=== PATIENT | male | born 1985 | race Caucasian/White ===

== ENCOUNTER → 2016-08-13 | Outpatient (CLI) | payer BC ==
[2016-08-13 15:03] LABS: BUN/CREATININE RATIO 16 (0-10)
== END ==
LOC: LAB 14:04
PROVIDERS: Nurse Practitioner Family
DX: R73.9 Hyperglycemia, unspecified (principal); R53.83 Other fatigue; Z83.3 Family history of diabetes mellitus; I10 Essential (primary) hypertension
CPT/HCPCS: 36415; 80053; 82043; 82088; 82570; 83036; 83835; 84244

== ENCOUNTER → 2016-09-02 | Outpatient (CLI) | payer BC | LOC: KOH-I 08:30 | DX: R79.89 Other specified abnormal findings of blood chemistry (principal); N28.89 Other specified disorders of kidney and ureter | CPT/HCPCS: 75635; Q9963 ==

== ENCOUNTER 2016-10-27 19:50 | Emergency (ER) | payer BC ==
[2016-10-27 21:20] LABS: HEMOGLOBIN 14.5 gm/dl (14.0-17.5); RED BLOOD COUNT 4.85 M/UL (4.20-5.50); WHITE BLOOD COUNT 7.4 K/UL (4.5-11.0)
[2016-10-27 21:42] LABS: BUN/CREATININE RATIO 16 (0-10)
== END 2016-10-28 01:12 | disposition home or self-care (01) ==
LOC: ER1 19:50
PROVIDERS: Emergency Medicine
DX: R07.89 Other chest pain (principal); R42 Dizziness and giddiness; K21.9 Gastro-esophageal reflux disease without esophagitis; E78.5 Hyperlipidemia, unspecified; I10 Essential (primary) hypertension
CPT/HCPCS: 36415; 70450; 71010; 80053; 82550; 82553; 83874; 84484; 85025; 85379; 93005; 99285

== ENCOUNTER → 2017-01-23 | Outpatient (CLI) | payer BC ==
[2017-01-25 15:22] LABS: METANEPH FR UR COLLECTION TIME 24 h (()); METANEPH FR UR VOLUME 775 mL (())
== END ==
LOC: LAB 15:24
PROVIDERS: Internal Medicine Endocrinology, Diabetes & Metabolism
DX: R00.2 Palpitations (principal); R03.0 Elevated blood-pressure reading, without diagnosis of hypertension
CPT/HCPCS: 82384; 82570; 83835; 84585